=== PATIENT | male | born 1960 | race Caucasian/White ===

== ENCOUNTER 2023-09-30 09:56 | Emergency (ER) | payer BC ==
[~2023-09-30] VITALS: Ht 172.7 cm; Wt 69.5 kg
[2023-09-30] MEDS: methylPREDNISolone acetate 80mg/ml inj**IM only IM ONE (10:52)
[2023-09-30] MEDS: LIDOcaine 1% 30ml preserv. free vial SQ STA (10:52)
[2023-09-30] MEDS ORDERED: CYCL-1 PO (10:57)
[2023-09-30] MEDS ORDERED: LIDO700A32 TOP (10:57)
[2023-09-30] MEDS: cyclobenzaprine 10mg tablet PO ONE (11:01)
[2023-09-30] MEDS: dexamethasone sod phosphate 10mg/ml inj IM STA (11:02)
[2023-09-30] MEDS: ketorolac trometh. 30mg/ml inj. IM ONE (11:02)
[2023-09-30 11:15] VITALS: BP 136/87; PULSE 117; RESP 16; TEMP 98.6; O2SAT 98
== END 2023-09-30 11:18 | disposition home or self-care (01) ==
LOC: ER 09:56
DX: M75.101 Unspecified rotator cuff tear or rupture of right shoulder, not specified as traumatic (principal); Z88.6 Allergy status to analgesic agent; Z79.899 Other long term (current) drug therapy
CPT/HCPCS: 20610; 73030; 96372; 99284; J1100; J1885; 64450